=== PATIENT | female | born 1950 | race Caucasian/White ===

== ENCOUNTER 2023-03-04 11:17 | Emergency (ER) | payer MEDICARE ==
[~2023-03-04] VITALS: Ht 162.6 cm; Wt 98.3 kg
[2023-03-04] MEDS ORDERED: LOSA-382 PO (11:19)
[2023-03-04] MEDS ORDERED: AMLO10TA55 PO (11:19)
[2023-03-04 11:22] VITALS: TEMP 98.3
[2023-03-04] MEDS ORDERED: ACET-3385 PO (14:07)
[2023-03-04] MEDS ORDERED: ACETAMINOPHEN 500 MG TABLET PO ONE (14:15)
[2023-03-04 14:31] VITALS: BP 133/69; PULSE 83; RESP 16
== END 2023-03-04 14:39 | disposition home or self-care (01) ==
LOC: EDUNIT# 11:17 → EMS 11:17
DX: M76.62 Achilles tendinitis, left leg (principal); I10 Essential (primary) hypertension; Z90.710 Acquired absence of both cervix and uterus
CPT/HCPCS: 99284